=== PATIENT | female | born 1980 | race Caucasian/White ===

== ENCOUNTER → 2020-02-13 | Outpatient (CLI) | payer OTHER | LOC: M.RAD 18:02 | PROVIDERS: ATTEND Nurse Practitioner Family | DX: M47.814 Spondylosis without myelopathy or radiculopathy, thoracic region (principal); M51.34 Other intervertebral disc degeneration, thoracic region; M77.9 Enthesopathy, unspecified; M47.816 Spondylosis without myelopathy or radiculopathy, lumbar region ==

== ENCOUNTER 2020-04-15 17:04 | Emergency (ER) | payer OTHER ==
[~2020-04-15] VITALS: Ht 170.2 cm; Wt 95.3 kg
[2020-04-15 17:16] VITALS: BP 141/91
[2020-04-15] MEDS ORDERED: FISH OIL 1,0001 EAC9 PO (17:24)
[2020-04-15] MEDS ORDERED: VITAMIN D310 MC4 PO (17:24)
[2020-04-15] MEDS ORDERED: TREXALL10 MG PO (17:24)
[2020-04-15] MEDS ORDERED: PROBIOTIC1 EAC7 PO (17:24)
[2020-04-15] MEDS ORDERED: VALACYCLOVIR1000 MG PO (17:25)
[2020-04-15] MEDS ORDERED: BUMETANIDE 1 MG1 M1 PO (17:25)
[2020-04-15] MEDS ORDERED: NEURONTIN100 MG PO (17:25)
[2020-04-15] MEDS ORDERED: SPIRONOLACTONE50 MG PO (17:25)
[2020-04-15] MEDS ORDERED: OMEPRAZOLE40 MG PO (17:25)
[2020-04-15] MEDS ORDERED: ESCITALOPRA5 MG/5 ML PO (17:26)
[2020-04-15] MEDS ORDERED: FOLIC ACID1 MG PO (17:26)
[2020-04-15] MEDS ORDERED: REQUIP 1 MG TABL1 M1 PO (17:26)
[2020-04-15] MEDS ORDERED: OPSUMIT10 MG PO (17:26)
[2020-04-15] MEDS ORDERED: ZPAK PO (18:31)
== END 2020-04-15 19:00 | disposition home or self-care (01) ==
LOC: M.ERS 17:04
DX: B34.9 Viral infection, unspecified (principal); Z20.828 Contact with and (suspected) exposure to other viral communicable diseases; Z79.899 Other long term (current) drug therapy; Z88.1 Allergy status to other antibiotic agents; Z88.0 Allergy status to penicillin; Z88.6 Allergy status to analgesic agent

== ENCOUNTER 2020-05-08 16:42 | Emergency (ER) | payer OTHER ==
[~2020-05-08] VITALS: Ht 170.2 cm; Wt 99.3 kg
[~2020-05-08 16:42] MED LIST: BUMETANIDE 1 MG1 M1 PO; ESCITALOPRA5 MG/5 ML PO; FISH OIL 1,0001 EAC9 PO; FOLIC ACID1 MG PO; NEURONTIN100 MG PO; OMEPRAZOLE40 MG PO; OPSUMIT10 MG PO; PROBIOTIC1 EAC7 PO; REQUIP 1 MG TABL1 M1 PO; SPIRONOLACTONE50 MG PO; TREXALL10 MG PO; VALACYCLOVIR1000 MG PO; VITAMIN D310 MC4 PO; ZPAK PO
[2020-05-08] MEDS ORDERED: MEDROLDOSEPACK PO (17:46)
[2020-05-08 18:12] VITALS: BP 124/65
== END 2020-05-08 18:12 | disposition home or self-care (01) ==
LOC: M.ERS 16:42
DX: M77.51 Other enthesopathy of right foot and ankle (principal); I10 Essential (primary) hypertension; Z88.1 Allergy status to other antibiotic agents; Z88.0 Allergy status to penicillin; Z88.5 Allergy status to narcotic agent